=== PATIENT | male | born 1980 | race Caucasian/White ===

== ENCOUNTER 2019-11-10 14:20 | Emergency (ER) | payer OTHER, SELFPAY ==
--- NOTE | 2019-11-10 14:26 | ED.GENADULT ---
HPI - General Adult General Chief complaint: Upper Respiratory Infection Stated complaint: cough/sore throat/chills Time Seen by Provider: 11/10/19 14:26 Source: patient Mode of arrival: ambulatory Limitations: no limitations History of Present Illness HPI narrative: 39-year-old male patient presents to the the medical center with complaints of cold symptoms for the past 5 days. Denies any fevers that he is aware of. Patient states this started as a cough. Patient states he has noticed that the cough is worse at night when he lays down. Patient states he has had a little bit of a runny nose stuffy nose and some chills and body aches. Denies any shortness of breath, chest pain, abdominal pain, nausea, vomiting or diarrhea. Patient states that he does vape. Patient states he did not get a flu shot this year. Patient states he has been taking [id number] [employer] Tylenol Cold and flu medication for symptoms. Related Data Home Medications Medication Instructions Recorded Confirmed No Home Medications 11/10/19 11/10/19 Allergies Allergy/AdvReac Type Severity Reaction Status Date / Time amoxicillin AdvReac Unknown VOMITING Unverified 10/18/14 20:05 Review of Systems Review of Systems: Narrative: CONSTITUTIONAL: Denies fever, chills, or sweats. EYES: Denies visual changes, redness, or discharge. ENT: Positive rhinorrhea, congestion, denies sore throat, or otalgia. CARDIOVASCULAR: Denies chest pain, palpitations, or edema. RESPIRATORY: Positive cough denies dyspnea. GASTROINTESTINAL: Denies abdominal pain, nausea, vomiting, or diarrhea. GENITOURINARY: Denies dysuria or hematuria. SKIN: Denies rash or itching. MUSCULOSKELETAL: Denies back pain, joint pain, or myalgia. NEUROLOGIC: Denies headache, numbness, or weakness. PSYCHIATRIC: Denies anxiety or depression. PMFSH Comments At the time of my signature I agree with nursing past medical history, surgical, social, and family history. There is no relevant family history pertinent to the presenting complaint. Exam Narrative: Exam Narrative: GENERAL: Well-appearing, well-nourished, and in no acute distress. HEAD: Normocephalic, atraumatic. EYES: PERRLA and EOMI. ENT: Nares with erythema and edema noted bilaterally, no rhinorrhea or epistaxis. Mucous membranes moist. Posterior pharynx with slight erythema. No tonsil enlargement no exudates or lesions present. Bilateral TMs are clear no erythema or foreign bodies in the canal. NECK: Supple. No lymphadenopathy CHEST: Clear to auscultation. No respiratory distress. HEART: Regular rate and rhythm. No murmur heard. Normal peripheral pulses. ABDOMEN: Soft, nontender, nondistended, normal active bowel sounds. EXTREMITIES: Normal range of motion. No edema. SKIN: Warm, dry, no rash. NEURO: No focal deficits. Alert and oriented x3. Course Reevaluation(s) Reevaluation #1: Notify patient that he is negative today for influenza. Discussed with him this is most likely some type of viral illness that will take some time to run its course. Patient can continue treating his symptoms with [id number] medication and it should improve with time. Patient verbalized understanding denies any other questions or concerns at this time. Date: 11/10/19 Time: 15:02 Vital Signs Vital signs: Vital Signs Temperature 37.5 C 11/10/19 14:42 Pulse Rate 85 11/10/19 14:42 Respiratory Rate 16 11/10/19 14:42 Blood Pressure 131/80 11/10/19 14:42 Pulse Oximetry 99 11/10/19 14:42 Temperature 37.5 C 11/10/19 14:42 Pulse Rate 85 11/10/19 14:42 Respiratory Rate 16 11/10/19 14:42 Blood Pressure 131/80 11/10/19 14:42 Pulse Oximetry 99 11/10/19 14:42 Vital signs reviewed. Medical Decision Making Differential Diagnosis Differential Diagnosis: Differential diagnosis: Allergic rhinitis, chronic sinusitis, tonsillitis, acute sinusitis, infectious mononucleosis, seasonal influenza, pertussis, diphtheria, meningococcal
[2019-11-10 14:42] VITALS: BP 131/80; PULSE 85; RESP 16; TEMP 37.5; O2SAT 99
== END 2019-11-10 15:04 | disposition home or self-care (01) ==
PROVIDERS: Emergency Provider Nurse Practitioner Family
DX: J06.9 Acute upper respiratory infection, unspecified (principal); R05 Cough; F17.200 Nicotine dependence, unspecified, uncomplicated
CPT/HCPCS: 87804; 99203; G0463